=== PATIENT | male | born 1955 | race African-American/Black ===

== ENCOUNTER 2018-03-27 15:09 | Outpatient (CLI) | payer MEDICARE ==
--- NOTE | 2018-03-27 16:24 | RAD ---
RIGHT INDEX FINGER 3 VIEWS: HISTORY: Right finger pain. Inflammation. FINDINGS: Mild soft tissue swelling about the proximal interphalangeal joint with mild joint space narrowing an d osteophytosis. Subtle erosions involving each side of the head of the proximal phalanx. IMPRESSION: Soft tissue swelling and mild erosions at the proximal interphalangeal joint. Inflammatory arthritis such as rheumatoid must be considered. POS: [facility]
== END 2018-03-27 15:10 | disposition home or self-care (01) ==
LOC: BICRAD 15:09
PROVIDERS: ATTEND Internal Medicine
DX: M65.9 Synovitis and tenosynovitis, unspecified (principal); M79.89 Other specified soft tissue disorders; M85.841 Other specified disorders of bone density and structure, right hand

== ENCOUNTER 2018-06-19 15:40 | Emergency (ER) | payer MEDICARE | END 2018-06-19 17:00 | disposition home or self-care (01) | LOC: ERS 15:40 | DX: R23.8 Other skin changes (principal) | CPT/HCPCS: 99283 ==

== ENCOUNTER 2020-06-15 09:23 | Emergency (ER) | payer MEDICARE ==
[2020-06-15] MEDS ORDERED: Acetaminophen 500 MG TAB ONE (11:47)
[2020-06-15] MEDS ORDERED: Ibuprofen 200 MG TAB ONE (11:47)
== END 2020-06-15 12:46 | disposition home or self-care (01) ==
LOC: ERS 09:23
DX: S40.022A Contusion of left upper arm, initial encounter (principal); M25.551 Pain in right hip; W19.XXXA Unspecified fall, initial encounter
CPT/HCPCS: 71045

== ENCOUNTER 2021-09-27 18:14 | Emergency (ER) | payer MEDICARE ==
[2021-09-27] MEDS ORDERED: Aspirin Chewable 81 MG TAB ONE ×2 (19:24→19:38)
[2021-09-27 19:43] LABS: #Eosinphils 0.1 thou/uL (0.0-0.7); #Lymphocytes 0.7 thou/uL (1.20-3.40); #Monocytes 0.6 thou/uL (0.11-0.59); #Neutrophils 6.2 thou/uL (1.40-6.50); %Eosinophils 1.5 % (0.0-10.0); %Lymphocytes 9.1 % (21.0-51.0); %Monocytes 7.8 % (0.0-10.0); %Neutrophils 81.6 % (42.0-75.0); Hemoglobin 15.2 g/dL (14.0-18.0); Mean Corpuscular HGB CONC 32.7 g/dL (32.0-36.0); Mean Platelet Volume 7.9 fL (7.4-10.4); Platelet Count 173 thou/uL (130-400); RBC Distribution Width 11.3 % (11.5-14.5); Red Blood Cell (RBC) Count 4.48 mill/uL (4.70-6.10); White Blood Cell (WBC) Count 7.6 thou/uL (4.8-10.8)
[2021-09-27 20:07] LABS: ALT (SGPT) 35 U/L (8-55); AST (SGOT) 28 U/L (5-34); Albumin 4.5 g/dL (3.4-4.8); Alkaline Phosphatase 99 U/L (40-110); Anion Gap 12 mmol/L (10-20); BUN (Urea Nitrogen) 17 mg/dL (8.4-25.7); Calc. Creatinine Clearance 0 mL/min (70-130); Calcium 9.5 mg/dL (7.8-10.44); Carbon Dioxide 22 mmol/L (23-31); Chloride 111 mmol/L (98-107); Estimated GFR 58; Glucose 108 mg/dL (80-115); Lipase 26 U/L (8-78); Potassium 4.9 mmol/L (3.5-5.1); Protein, Total 7.5 g/dL (5.8-8.1); Sodium 140 mmol/L (136-145)
[2021-09-27 20:57] LABS: SARS-CoV-2 NAA Rapid Test Not Detected (NotDetected)
== END 2021-09-27 21:29 | disposition home or self-care (01) ==
LOC: ERS 18:14
DX: R53.1 Weakness (principal); E86.0 Dehydration; R11.2 Nausea with vomiting, unspecified; Z20.822 Contact with and (suspected) exposure to COVID-19
CPT/HCPCS: 0240U; 71045; 80053; 83690; 83880; 84484; 85025; 93005; 96360; 96361; 99285

== ENCOUNTER 2023-02-02 17:13 | Emergency (ER) | payer MEDICARE ==
[2023-02-02] MEDS ORDERED: Bupivacaine 0.25% 10 ML VIAL ONE (17:41)
[2023-02-02] MEDS ORDERED: Bacitracin 1 PK ONE (18:42)
== END 2023-02-02 18:56 | disposition home or self-care (01) ==
LOC: ERS 17:13
DX: S62.633B Displaced fracture of distal phalanx of left middle finger, initial encounter for open fracture (principal); W23.1XXA Caught, crushed, jammed, or pinched between stationary objects, initial encounter
CPT/HCPCS: 12002; S0020